=== PATIENT | male | born 1995 | race Caucasian/White ===

== ENCOUNTER 2024-02-27 14:48 | Emergency (ER) | payer OTHER ==
[2024-02-27 15:05] VITALS: BP 157/96; O2SAT 97
[2024-02-27] MEDS: CLINDAMYCIN 150 MG CAPSULE PO STA (15:24)
[2024-02-27] MEDS: DOXYCYCLINE 100 MG TABLET PO STA (15:24)
--- NOTE | 2024-02-27 15:25 | ED Physician Documentation ---
History of Present Illness - Stated complaint Stated Complaint: DOG BITE NOSE - Chief complaint Chief Complaint: Laceration - Additonal information Additional information: 28-year-old male presents with dog bite to face. Was roughhousing with his mother's dog. Inadvertently bit on the tip of his nose. 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 Endorses for severe allergy to penicillins. Review of Systems Constitutional: denies: Fever Eyes: denies: Loss of vision Ears: denies: Loss of hearing Nose: denies: Rhinorrhea / runny nose Throat: denies: Dental pain / toothache Cardiac: denies: Chest pain / pressure Respiratory: denies: Dyspnea GI: denies: Abdominal Pain : denies: Dysuria Skin: denies: Rash Musculoskeletal: denies: Neck pain PD PAST MEDICAL HISTORY - Past Medical History Cardiovascular: None Respiratory: None Endocrine/Autoimmune: None GI: None : None HEENT: None Psych: None Musculoskeletal: None Derm: None - Past Surgical History Past Surgical History: No General: Other - Present Medications Home Medications: Ambulatory Orders Medication Instructions Recorded Confirmed Doxycycline Hyclate 100 mg PO BID #14 tab 02/27/24 clindamycin HCL [Cleocin HCl] 300 mg PO Q6H #21 cap 02/27/24 - Allergies Allergies/Adverse Reactions: Allergies Allergy/AdvReac Type Severity Reaction Status Date / Time Penicillins Allergy Unknown Verified 02/27/24 15:00 - Social History Does the pt smoke?: No Smoking Status: Never smoker Does the pt drink ETOH?: No Does the pt have substance abuse?: No - Immunizations Immunizations are current?: Yes - POLST Patient has POLST: No PD ED PE NORMAL - General General: Alert and oriented X 3, No acute distress, Well developed/nourished - HEENT HEENT: Other (Laceration involving the base of the left nare. No nasal bone ten derness to palpation.) - Neck Neck: Supple, no meningeal sign - Respiratory Respiratory: No respiratory distress Results - Vitals Vitals: Vital Signs - 24 hr 02/27/24 14:51 Temperature 36.6 C Heart Rate 70 Respiratory 18 Rate Blood Pressure 157/96 H O2 Saturation 97 Oxygen O2 Source Room air Procedures - Laceration (location) Nose left Length in cm: 0.5 Wound type: Curved, Exposure of cartilage Neurovascular status: Sensory intact, Motor intact Anesthesia: Lidocaine 1% with epi Wound preparation: Hibiclens, Wound explored, Other Skin layer closure: Prolene, Size #-0 - enter number (6), Sutures - enter # (2) Other: Patient tolerated well PD Medical Decision Making - ED course ED course: Patient presents with laceration to his nose. This is from a dog bite that occurred while roughhousing with his mother's dog. Active duty and believes tetanus up-to-date. Endorsed for penicillin allergy. Started on clinda and doxycycline. Wound extensively cleaned and repaired as outlined in procedure note. Follow-up and wound care instructions given prior to discharge. Departure - Departure Disposition: 01 Home, Self Care Clinical Impression: Dog bite Qualifiers: Encounter type: initial encounter Qualified Code(s): W54.0XXA - Bitten by dog, initial encounter Instructions: ED Laceration All Prescriptions: clindamycin HCL [Cleocin HCl] 300 mg PO Q6H #21 cap Doxycycline Hyclate 100 mg PO BID #14 tab
== END 2024-02-27 15:50 | disposition home or self-care (01) ==
LOC: ED 14:48
DX: S01.25XA Open bite of nose, initial encounter (principal); W54.0XXA Bitten by dog, initial encounter
CPT/HCPCS: 12011; 99283; A9270

== ENCOUNTER 2024-03-04 13:55 | Emergency (ER) | payer OTHER ==
[2024-03-04 14:16] VITALS: BP 142/96; O2SAT 98
--- NOTE | 2024-03-04 14:29 | ED Physician Documentation ---
History of Present Illness - Stated complaint Stated Complaint: STICHES REMOVAL - Chief complaint Chief Complaint: General - Additonal information Additional information: 28-year-old male presents emergency department for stitch removal on the bottom of his nose. Patient was seen here recently for accidental laceration to the tip of his nose. 2 sutures were placed and there is no signs or symptoms of infection wound edges appear to be well-approximated. PD PAST MEDICAL HISTORY - Past Medical History Cardiovascular: None Respiratory: None Endocrine/Autoimmune: None GI: None : None HEENT: None Psych: None Musculoskeletal: None Derm: None - Past Surgical History Past Surgical History: No General: Other - Present Medications Home Medications: Ambulatory Orders Medication Instructions Recorded Confirmed Bacitracin Zinc Oint 1 applic TOP BID #1 each 02/27/24 Doxycycline Hyclate 100 mg PO BID #14 tab 02/27/24 clindamycin HCL [Cleocin HCl] 300 mg PO Q6H #21 cap 02/27/24 - Allergies Allergies/Adverse Reactions: Allergies Allergy/AdvReac Type Severity Reaction Status Date / Time Penicillins Allergy Unknown Verified 03/04/24 14:08 - Social History Does the pt smoke?: No Smoking Status: Never smoker Does the pt drink ETOH?: No Does the pt have substance abuse?: No - Immunizations Immunizations are current?: Yes - POLST Patient has POLST: No PD ED PE NORMAL - Vitals Vital signs reviewed: Yes - Derm Derm: Normal color, Warm and dry, No rash, Other (2 well-healing stitches at the tip of patient's nose wound edges well-approximated no erythema no purulent drainage.) Results - Vitals Vitals: Vital Signs - 24 hr 03/04/24 14:05 Temperature 36.4 C L Heart Rate 56 L Respiratory 16 Rate Blood Pressure 142/96 H O2 Saturation 98 Oxygen O2 Source Room air PD Medical Decision Making - ED course ED course: Patient stitches removed by RN without any complications or difficulty he is safe for discharge return precautions given signs symptoms of infection to watch out for Were taught to patient. Departure - Departure Disposition: 01 Home, Self Care Clinical Impression: Visit for suture removal Instructions: ED Wound Check Sutr Remove No Infec Comments: Thank you for trusting us with your care. We have removed your stitches without difficulty, If you start to develop signs or symptoms of infection such as redness, swelling, green or yellow drainage please come back to ER Forms: PCP List Discharge Date/Time: 03/04/24 14:33
== END 2024-03-04 14:33 | disposition home or self-care (01) ==
LOC: ED 13:55
DX: Z48.02 Encounter for removal of sutures (principal)
CPT/HCPCS: 99281; 99282